=== PATIENT | female | born 2000 ===

== ENCOUNTER 2025-05-16 02:28 | Emergency (ER) | payer MEDICAID ==
[2025-05-16 02:56] LABS: BASOPHILS ABSOLUTE AUTO 0.04 10^3/uL (0.00-0.50); BASOPHILS PERCENT AUTO 0.7 % (0-1); EOSINOPHILS ABSOLUTE AUTO 0.05 10^3/uL (0.00-1.50); EOSINOPHILS PERCENT AUTO 0.8 % (0-6); IMMATURE GRAN ABSOLUTE AUTO 0.01 10^3/uL (0.00-0.49); IMMATURE GRAN PERCENT AUTO 0.2 % (0.0-4.9); LYMPHOCYTES ABSOLUTE AUTO 2.15 10^3/uL (0.60-5.00); LYMPHOCYTES PERCENT AUTO 35.4 % (24-44); MONOCYTES ABSOLUTE AUTO 0.29 10^3/uL (0.00-1.50); MONOCYTES PERCENT AUTO 4.8 % (0-10); NEUTROPHILS ABSOLUTE AUTO 3.54 x10^3/uL (1.80-8.00); NEUTROPHILS PERCENT AUTO 58.1 % (41-71); PLATELET COUNT,PLT 205 10^3/uL (150-400); RED BLOOD CELL COUNT 4.17 x10^6/uL (4.00-5.50); WHITE BLOOD CELL COUNT,WBC 6.1 10^3/uL (4.0-11.0)
[2025-05-16 03:09] LABS: ALANINE AMINOTRANSFERASE,ALT 14 U/L (12-78); ASPARTATE AMNIOTRANSFERASE,AST 9 U/L (15-37); BILIRUBIN TOTAL 1.3 mg/dL (0.0-1.0); BLOOD UREA NITROGEN,BUN 14 mg/dL (7-18); CARBON DIOXIDE,CO2 21 mmol/L (21-32); CHLORIDE,CL 100 mEq/L (98-106); CREATININE 0.7 mg/dL (0.6-1.0); GLUCOSE RANDOM 78 mg/dL (75-99); PROTEIN TOTAL,TP 7.7 g/dL (6.4-8.2); SODIUM,NA 139 mEq/L (136-145)
[2025-05-16] MEDS: Albuterol 0.042% 1.25 MG/3 ML Neb Soln ONE (03:16)
[2025-05-16] MEDS: Albuterol 0.083% 2.5 MG/3 ML Neb Soln NEB ONE (03:16)
[2025-05-16] MEDS: Albuterol 0.083% 2.5 MG/3 ML Neb Soln ONE (03:16)
[2025-05-16 03:29] LABS: O2 DELIVERY DEVICE BIPAP; O2 SATURATION ARTERIAL 100 % (95-98); PCO2 ARTERIAL 35 mm/Hg0 (35-45); PH,ARTERIAL 7.39 (7.35-7.45); PO2 ARTERIAL 207 mm/Hg (80-100)
[2025-05-16 03:29] LABS: ESTIMATED GFR 122 mL/min (>=60); POTASSIUM,K 2.7 mEq/L (3.5-5.0)
[2025-05-16 03:30] LABS: BASE EXCESS ARTERIAL -3.3 (-2.0-3.0); BICARBONATE,ARTERIAL 21.1 mm/L (22.0-26.0)
[2025-05-16] MEDS: Magnesium Sulfate 2 GM/50 mL 2 GM in Premix Bag 1 BAG IV ONE (03:36)
[2025-05-16] MEDS: Potassium Chloride Riders 20 MEQ in Premix Bag 1 BAG IV ONE (03:37)
[2025-05-16 04:50] VITALS: BP 141/88; PULSE 80
== END 2025-05-16 04:35 ==
LOC: CC.ED 02:28
DX: G70.01 Myasthenia gravis with (acute) exacerbation (principal); E87.6 Hypokalemia; E83.42 Hypomagnesemia; Z88.0 Allergy status to penicillin; Z79.899 Other long term (current) drug therapy
CPT/HCPCS: 36415; 36600; 71045; 80053; 82803; 83605; 83735; 84484; 85025; 93005; 93010; 94640; 96365; 96368; 96375; 99291; 99291-25; A9270-GY; J2270; J3475; J3480